=== PATIENT | male | born 1970 | race Caucasian/White ===

== ENCOUNTER 2023-02-13 10:30 | Day surgery (SDC) | payer OTHER ==
[2023-02-13] MEDS ORDERED: LACTATED RINGERS 1,000 ML IV ONE ×2 (10:50→12:30)
--- NOTE | 2023-02-13 10:56 | ANESTHESIA ---
Pre-Anesthesia VS, & Labs - Diagnosis screening - Procedure colonoscopy Vital Signs: Temp Pulse Resp BP Pulse Ox O2 Flow Rate 36.5 C 63 17 121/81 H 100 02/13/23 10:51 02/13/23 10:51 02/13/23 10:51 02/13/23 10:51 02/13/23 10:51 - NPO >8 hours Last Fluid Intake: am prep - Lab Results Lab results reviewed: Yes Home Medications and Allergies Home Medications: Ambulatory Orders Cyclobenzaprine [Flexeril] 10 mg PO TID PRN 02/12/23 Ibuprofen [Motrin] 400 mg PO Q6H 02/12/23 Lisinopril [Zestril] 20 mg PO DAILY 02/12/23 Omeprazole 40 mg PO DAILY 02/12/23 Cyclobenzaprine [Flexeril] 10 mg PO TID PRN 02/12/23 Ibuprofen [Motrin] 400 mg PO Q6H 02/12/23 Lisinopril [Zestril] 20 mg PO DAILY 02/12/23 Omeprazole 40 mg PO DAILY 02/12/23 Allergies/Adverse Reactions: Allergies Allergy/AdvReac Type Severity Reaction Status Date / Time No Known Drug Allergies Allergy Verified 02/13/23 10:59 Anes History & Medical History - Anesthetic History Anesthesia Complications: reports: No previous complications Family history of Anesthesia Complications: Denies Family history of Malignant Hyperthermia: Denies - Medical History Cardiovascular: reports: Hypertension Pulmonary: reports: None Gastrointestinal: reports: GERD Musculoskeletal: reports: Chronic back pain History of Cancer?: No - Surgical History General: reports: Appendectomy Exam General: Alert, Oriented x3, Cooperative Mouth Openin Fingerbreadth Neck Mobility: Normal Mallampati classification: II Thyromental Distance: 4-6 cm Respiratory: Lungs clear, Normal breath sounds, No respiratory distress Cardiovascular: Regular rate Neurological: Normal speech Mental/Cognitive Status: Alert/Oriented X3, Normal for patient Cognitive Status: Within normal limits Plan Anesthesia Type: Total IV Consent for Procedure(s) Verified and Reviewed: Yes Code Status: Attempt Resuscitation ASA classification: 2-Mild systemic disease Is this case an emergency?: No
[2023-02-13] MEDS ORDERED: PROPOFOL 500 MG/50 ML 500 MG/50 ML VIAL ONE (10:57)
[2023-02-13] MEDS ORDERED: MIDAZOLAM 2 MG/2 ML VIAL ONE (11:17)
--- NOTE | 2023-02-13 11:33 | HISTORY & PHYSICAL EXAMINATION ---
Chief Complaint - Chief Complaint Chief Complaint: here for colonscopy History of Present Illness - History Obtained From Records Reviewed: yes History obtained from: pt Exam Limitations: none - History of Present Illness HPI Comment/Other: here for colon cancer screening. no gi problems or family hx colon ca. History - Past Medical History Cardiovascular: reports: Hypertension Respiratory: reports: None GI: reports: GERD Musculoskeletal: reports: Chronic back pain MRSA Hx?: No - Past Surgical History General: reports: Appendectomy Meds/Allgy - Home Medications Home Medications: Ambulatory Orders Medication Instructions Recorded Confirmed Cyclobenzaprine [Flexeril] 10 mg PO TID PRN 02/12/23 02/12/23 Ibuprofen [Motrin] 400 mg PO Q6H 02/12/23 02/12/23 Lisinopril [Zestril] 20 mg PO DAILY 02/12/23 02/12/23 Omeprazole 40 mg PO DAILY 02/12/23 02/12/23 - Allergies Allergies/Adverse Reactions: Allergies Allergy/AdvReac Type Severity Reaction Status Date / Time No Known Drug Allergies Allergy Verified 02/13/23 10:59 Review of Systems - Other Findings Other Findings: 10 pt ros as above otherwise unremarkable Exam - Vital Signs Vital Signs: Vital Signs x48h Temp Pulse Resp BP Pulse Ox 02/13/23 10:51 36.5 C 63 17 121/81 H 100 Conclusion/Plan - Problem List (1) Colon cancer screening Conclusion/Plan: plan colonscopy. parq held and consent obtained - Lab Results Lab results reviewed: Yes
[2023-02-13] MEDS ORDERED: LIDOCAINE-PF 2% 10 ML AMP SUBQ ONE (11:55)
[2023-02-13] MEDS ORDERED: PROPOFOL 200 MG/20 ML VIAL IVP ONE (12:17)
--- NOTE | 2023-02-13 12:48 | ANESTHESIA POST OP EVALUATION ---
Anesthesia Post Eval - Post Anesthesia Eval Vitals: Last Vital Signs Temp 36.5 C 02/13/23 10:51 Pulse 63 02/13/23 10:51 Resp 17 02/13/23 10:51 BP 121/81 H 02/13/23 10:51 Pulse Ox 100 02/13/23 10:51 O2 Flow Rate CV Function Including HR & BP: Stable Pain Control: Satisfactory Nausea & Vomiting: Negative Mental Status: Baseline Respiratory Status: Airway Patent Hydration Status: Satisfactory Anesthesia Complications: None
[2023-02-13 12:49] VITALS: BP 105/60
[2023-02-13 12:59] VITALS: O2SAT 99
== END 2023-02-13 10:31 | disposition home or self-care (01) ==
LOC: SDS 10:30
PROVIDERS: ATTEND Surgery
DX: Z12.11 Encounter for screening for malignant neoplasm of colon (principal); I10 Essential (primary) hypertension
CPT/HCPCS: 45378; J7120